=== PATIENT | male | born 1950 | race Caucasian/White ===

== ENCOUNTER 2023-02-23 12:28 | Outpatient (OUT) | payer MEDICARE, SELFPAY ==
--- NOTE | 2023-02-23 12:29 | VEIN_ITS ---
Patient: GILMA BOWIE Exam Date: 02/23/2023 : 1950 Gender:M Ordering : DR OSIEL MOSES M.D. Admission #: [id number] Family : Order #: [id number] CLICK HERE TO VIEW EXAM RADIOLOGY REPORT PROCEDURE: [facility] - OFFICE VISIT INITIAL COMPARISON: None. PROGRESS NOTES: 72-year-old male who presents with a 10+ year history of lower extremity pain swelling and varicose veins. The patient presents with bilaterally symmetric pain rating the pain as a 2 on a scale of 1-10. The patient complains bilateral heaviness itching and achiness. The patient's symptoms are exacerbated by prolonged sitting and standing and are partially relieved by rest, leg elevation, exercise, the patient does exercise daily and support stockings. The patient denies any signs and symptoms to suggest arterial ischemia. The patient describes a family history significant for heart disease, psoriasis, lymphoma, skin cancer and diabetes in his siblings. The patient has 12 siblings. The patient does not use alcohol. The patient has never smoked. No illicit drug use. Current medical history is significant for well controlled type 2 diabetes. 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 No history of deep venous thrombus or pulmonary embolus. See separate history and physical for medication list. No prior treatment for varicose or spider veins. Nursing notes were reviewed. After history and physical exam I discussed at length the pathophysiology of venous hypertension and possible treatments, therapies and strategies available. We discussed at length the importance of elevating the lower extremities above the level of the heart, increased physical activity and compression stocking use. We discussed conservative treatment with bilateral thigh-high compression stockings. We discussed use of compression stockings long-term to reduce disease recurrence. We discussed intravenous laser ablation, micro foam chemical ablation and injection sclerotherapy at length. Risks benefits and alternatives were discussed with the patient and his sister. Ultrasound venous reflux study performed the same day was discussed at length with the patient. The report demonstrates severe bilateral great saphenous vein venous insufficiency with saphenous femoral junction reflux and dilatation. Mild left small saphenous vein venous insufficiency. Extensive incompetent varicosities, incompetent perforating veins and moderate to severe bilateral deep vein reflux. PHYSICAL EXAM: The right leg demonstrates extensive varicosities, moderate reticular and spider veins. No active ulceration, hemosiderin staining or edema. The left leg demonstrates extensive varicosities, moderate reticular and spider veins. No active ulceration, hemosiderin staining or edema. Both thighs, legs and feet were symmetrically warm to the touch. Good posterior tibial and dorsalis pedis pulses were present bilaterally. VEIN/[facility] IMPRESSION: 1. Severe bilateral great saphenous vein venous insufficiency with dilatation 2. Severe bilateral lower extremity varicose veins 3. Incompetent dilated bilateral perforating veins 4. No definite flow significant arterial disease 5. CEAP: C2, Ep, As, Pr PLAN: 1. Endovenous laser ablation right great saphenous vein followed by left great saphenous vein followed by incompetent perforating veins 2. Micro foam chemical ablation bilateral incompetent varicose veins 3. Long-term use of bilateral knee or thigh-high 20-30 mm compression stockings 4. Continued patient and physical activity for symptomatic relief Nurse notes, history and physical were reviewed and confirmed, see attached forms. The nurse was present throughout the physical exam and consultation Dictated by: Osiel Moses MD on 02/23/2023 at 14:20 Approved by: Osiel Moses MD on 02/23/2023 at 14:47
--- NOTE | 2023-02-23 12:29 | VEIN_ITS ---
Patient: GILMA BOWIE Exam Date: 02/23/2023 : 1950 Gender:M Ordering : DR OSIEL MOSES M.D. Admission #: [id number] Family : Order #: [id number] CLICK HERE TO VIEW EXAM RADIOLOGY REPORT PROCEDURE: VC EXT VENOUS REFLUX DIOGENES LMTD COMPARISON: None. INDICATIONS: I83.813 Pain due to varicose veins of bilateral leg veins TECHNIQUE: Duplex imaging of the lower extremity to assess the deep and superficial venous system for the presence of deep or superficial venous incompetence and to document the location and severity of disease. The study includes evaluation of the great saphenous vein (GSV), anterior accessory saphenous vein (AASV) and small saphenous vein (SSV). Patient scanned in reverse Trendelenburg and standing. FINDINGS: RIGHT LOWER EXTREMITY: Saphenofemoral Junction Reflux: Yes 10.0mm 3.8 sec GSV: Diam (mm) Reflux/ Time (sec) Proximal Thigh 12.3 Yes 3.3 Mid Thigh 12.5 Yes 1.9 Distal Thigh 9.4 Yes 3.9 Prox Calf 6.6 Yes 3.6 Mid Calf 1.6 Yes 2.3 Saphenopopliteal Junction Reflux: 2.8mm Yes 0.2 SSV: Proximal Calf 3.6 Yes 0.4 Mid Calf 3.6 Yes 0.2 AASV: Not present Thrombi: No acute or chronic thrombus. Compressibility: Normal. Flow: Severe deep venous reflux. Preforator: Dist medial lower leg 4.9 mm with 1.2s reflux. Mid medial lower leg 4.4 mm, 2.2s reflux. Mid calf gastroc 3.7 mm, 2.9s reflux. Tech Note: Incompetent varicose vein proximal medial thigh off GSV 7.3 mm with 3.6s reflux. Mid medial thigh varicosity 13.3 mm, 3.5s reflux. Varicose vein proximal medial lower leg 7.9 mm with 3.5s reflux. LEFT LOWER EXTREMITY: Saphenofemoral Junction Reflux: Yes 11.9 mm 1.2 sec GSV: Diam (mm) Reflux/Time (sec) Proximal Thigh 12.9 Yes 1.4 Mid Thigh 7.0 Yes 3.8 Distal Thigh 4.0 Yes 0.8 Prox Calf 5.1 Yes 3.3 Mid Calf 5.3 Yes 2.0 Saphenopopliteal Junction Relux: 3.6 mm Yes 1.0 SSV: Proximal Calf 4.8 Yes 0.3 Mid Calf 3.7 Yes 1.0 AASV: Not present Thrombi: No acute or chronic thrombus. Compressibility: Normal. Flow: Moderate deep venous reflux. Maintenance Analyst: Dist medial lower leg 3.8 mm, 1.6s reflux. Mid medial lower leg 6.2 mm, 1.6s reflux. Tech Note: Incompetent varicose vein proximal medial lower leg 5.0 mm with 3.1s reflux. Medial knee varicose vein measures 5.9 mm with 3.5s reflux. Varicosity mid medial thigh measures 9.0 mm with 1.1s reflux. CONCLUSION: 1. Severe bilateral great saphenous vein venous insufficiency with saphenofemoral junction reflux and associated dilatation 2. Mild left small saphenous vein venous insufficiency without dilatation 3. Bilateral incompetent varicose veins 4. Bilateral incompetent perforating veins 5. Severe right and moderate left deep vein reflux Dictated by: Osiel Moses MD on 02/23/2023 at 13:58 Approved by: Osiel Moses MD on 02/23/2023 at 14:01
== END 2023-02-23 12:29 | disposition home or self-care (01) ==
LOC: VC 12:28
PROVIDERS: PCP Radiology Diagnostic Radiology; Visit Provider Radiology Diagnostic Radiology
DX: I83.813 Varicose veins of bilateral lower extremities with pain (principal)
CPT/HCPCS: 93970; G0463

== ENCOUNTER 2023-03-25 08:25 | Outpatient (OUT) | payer MEDICARE, SELFPAY ==
--- NOTE | 2023-03-25 08:36 | VEIN_ITS ---
The [address] [address] Patient Name: GILMA BOWIE MRN: [id number] date: 1950 Sex: M Assigned Patient Location: Current Patient Location: Accession/Order Number: [id number] Exam Date: 03/25/2023 08:36 Report Date: 03/25/2023 11:16 At the request of: ABHIJIT SCHMITT Procedure: VC Endovenous Ablation 1VeinRT EXAMINATION: VC Endovenous Ablation 1Vein right great saphenous vein HISTORY: I83.813 Pain due to varicose veins of bilateral legs COMPARISON: No relevant comparison available. TECHNIQUE: The risks and benefits of the procedure had been previously discussed, and were rediscussed at length. Informed written consent was obtained. Lidia Cardenas and Andria assisted. Time out procedure was performed. The right lower extremity was prepared and draped in the usual sterile fashion to allow knee flexion in the sterile field. Duplex ultrasound probe was draped in a sterile cover, sterile transmission gel was used. Venous mapping was performed with the areas of dilation and large tributaries marked. The total length was 46 cm from the entry upper calf to 3 cm below the saphenofemoral junction. I believe the entry site was tortuous and not amenable to intravenous laser ablation. The diameter of the greater saphenous vein ranged from 5-13 mm. A 30 gauge needle and 1% buffered lidocaine was used to anesthetize the entry site. A 4 mm incision was made with a scalpel and the saphenous vein was entered percutaneously under direct ultrasound guidance with a micropuncture set, a single stick was successful in gaining access. A micro-guide wire was inserted and the needle removed. A micro-set including a dilator was inserted over the microwire and the needle and dilator were removed. A 0.018 guide wire was inserted through the micro-set and threaded through the saphenous vein to the saphenofemoral junction. The dilator was removed and an introducer sheath was inserted over the wire until the end of the sheath entered the saphenofemoral junction. The dilator and wire were removed and the 600 micron fiber was introduced and placed and positioned so that it extended beyond the sheath and was 3 cm peripheral to the saphenofemoral femoral junction. Final position of the fiber was determined by ultrasound guidance and duplex imaging. Tumescent anesthetic was delivered by ultrasound guidance. 200 cc of fluid was delivered along the entire course of the saphenous vein. The solution consisted of 1000 cc of normal saline with 40 mL of 1% lidocaine and 20 mL of sodium bicarbonate. A final positioning check was made. The energy source was turned on by means of the foot pedal and the fiber and sheath were withdrawn. The total number of Joules delivered was 2145. The laser was active for 268seconds under continuous pulse, average laser use of 8 J. Laser start time 911 03/25/2023 . Laser stop time 916 03/25/2023 . A duplex ultrasound revealed compressibility and flow at the saphenofemoral junction immediately after the procedure. Hemostasis at the access site was achieved. The skin incision of the saphenous vein was closed with a 4 x 4. A compression stocking was applied. Postop instructions were given. A follow up appointment was recommended and scheduled. The patient tolerated the procedure well and was discharged in good condition . VEIN/VC Endovenous Ablation 1VeinRT IMPRESSION: Technically successful endovenous laser ablation of the right great saphenous vein Electronically authenticated by: ABHIJIT SCHMITT Date: 03/25/2023 11:16
[2023-03-25] MEDS: 0.9 % SODIUM CHLORIDE 500 ML, LIDOCAINE HCL 20 ML, SODIUM BICARBONATE 10 MEQ INJ (09:37)
[2023-03-25] MEDS: LIDOCAINE HCL 10 ML, SODIUM BICARBONATE 1 MEQ INJ (09:38)
== END 2023-03-25 08:26 | disposition home or self-care (01) ==
LOC: VC 08:27
PROVIDERS: PCP Radiology Diagnostic Radiology; Visit Provider Radiology Diagnostic Radiology
DX: I83.813 Varicose veins of bilateral lower extremities with pain (principal)
CPT/HCPCS: 36478

== ENCOUNTER 2023-03-30 09:54 | Outpatient (OUT) | payer MEDICARE, SELFPAY ==
--- NOTE | 2023-03-30 | VEIN_ITS ---
Patient: GILMA BOWIE Exam Date: 03/30/2023 : 1950 Gender:M Ordering : DR OSIEL MOSES M.D. Admission #: [id number] Family : Order #: [id number] CLICK HERE TO VIEW EXAM RADIOLOGY REPORT PROCEDURE: [facility] EST [facility] - OFFICE VISIT FOLLOW UP COMPARISON: None. PROGRESS NOTES: The patient reports no significant problems following intravenous laser ablation of the right great saphenous vein. The patient did not require oral analgesics. The patient has had some weakness in the left leg which is by his primary caregiver to be related to his knee. The patient has followed our recommendations to walk 20-30 minutes once or twice per day since the procedure. Physical exam demonstrates several small areas of mild bruising in the right medial thigh and lower leg related to tumescence injection, these areas range from 2-6 cm in diameter. Partially thrombosed right great saphenous vein can be palpated. No areas of erythema or warmth to suggest cellulitis or thrombophlebitis. No active ulceration Review of the ultrasound performed the same day demonstrates occlusive thrombus extending throughout the treated right great saphenous vein with heat induced thrombus 1.7 cm from the saphenofemoral junction. Incidentally observed is spontaneous thrombosis of a large associated branch saphenous tributary. The patient expressed a desire to proceed with treatment of incompetent left great saphenous vein. VEIN/[facility] Facility EST LMTD IMPRESSION: 1. Successful ablation of the right great saphenous vein 2. Persistent incompetent left great saphenous vein. PLAN: Intravenous laser ablation left great saphenous vein Nurse notes, history and physical were reviewed and confirmed, see attached forms. The nurse was present throughout the physical exam and consultation Dictated by: Osiel Moses MD on 03/30/2023 at 11:41 Approved by: Osiel Moses MD on 03/30/2023 at 11:42
--- NOTE | 2023-03-30 | VEIN_ITS ---
Patient: GILMA BOWIE Exam Date: 03/30/2023 : 1950 Gender:M Ordering : DR OSIEL MOSES M.D. Admission #: [id number] Family : Order #: [id number] CLICK HERE TO VIEW EXAM RADIOLOGY REPORT PROCEDURE: VC EXT VENOUS RT LMTD COMPARISON: None. INDICATIONS: Phlebitis of superficial veins of rt lower extremity I80.01 TECHNIQUE: Lower extremity mitchell scale and Duplex Doppler evaluation of the deep venous system from the inguinal ligament through the calf veins. FINDINGS: REGION: Right lower extremity. THROMBI: Negative for DVT. Heat induced thrombus in right GSV 1.7 cm from SFJ and extends to proximal calf. Associated varicosity off of mid medial thigh also thrombosed. COMPRESSIBILITY: Non-compressible segments corresponding to thrombus. FLOW: No flow corresponding to thrombus. OTHER: Patent varicosities in lower leg visualized. CONCLUSION: Post ablation occlusion of the ablated right great saphenous vein with heat induced thrombus 1.7 cm from the saphenofemoral junction Dictated by: Osiel Moses MD on 03/30/2023 at 10:24 Approved by: Osiel Moses MD on 03/30/2023 at 10:25
== END 2023-03-30 09:55 | disposition home or self-care (01) ==
LOC: VC 09:54
PROVIDERS: PCP Radiology Diagnostic Radiology; Visit Provider Radiology Diagnostic Radiology
DX: I80.01 Phlebitis and thrombophlebitis of superficial vessels of right lower extremity (principal)
CPT/HCPCS: 93971; G0463

== ENCOUNTER 2023-04-13 07:29 | Outpatient (OUT) | payer MEDICARE, SELFPAY ==
--- NOTE | 2023-04-13 | VEIN_ITS ---
The [address] [address] Patient Name: GILMA BOWIE MRN: [id number] date: 1950 Sex: M Assigned Patient Location: Current Patient Location: Accession/Order Number: [id number] Exam Date: 04/13/2023 07:30 Report Date: 04/13/2023 08:57 At the request of: ABHIJIT SCHMITT Procedure: VC Endovenous Ablation 1VeinLT EXAMINATION: VC Endovenous Ablation 1Vein left Great saphenous vein HISTORY: Pain due to varicose veins of bilateral legs I83.813 COMPARISON: No relevant comparison available. TECHNIQUE: The risks and benefits of the procedure had been previously discussed, and were rediscussed at length. Informed written consent was obtained. Lidia Cardenas and Rodrigue Scales assisted. Time out procedure was performed. The left lower extremity was prepared and draped in the usual sterile fashion to allow knee flexion in the sterile field. Duplex ultrasound probe was draped in a sterile cover, sterile transmission gel was used. Venous mapping was performed with the areas of dilation and large tributaries marked. The total length was 24 cm from the entry mid thigh to 3 cm below the saphenofemoral junction. The vein beneath this area was decompressed from a large varicose vein and not amenable to endovenous laser ablation. The diameter of the greater saphenous vein ranged from 4-8 mm. A 30 gauge needle and 1% buffered lidocaine was used to anesthetize the entry site. A 4 mm incision was made with a scalpel and the saphenous vein was entered percutaneously under direct ultrasound guidance with a micropuncture set, 2 needle sticks were successful in gaining access. A micro-guide wire was inserted and the needle removed. A micro-set including a dilator was inserted over the microwire and the needle and dilator were removed. A 0.018 guide wire was inserted through the micro-set and threaded through the saphenous vein to the saphenofemoral junction. The dilator was removed and an introducer sheath was inserted over the wire until the end of the sheath entered the saphenofemoral junction. The dilator and wire were removed and the 600 micron fiber was introduced and placed and positioned so that it extended beyond the sheath and was 3 cm peripheral to the saphenofemoral femoral junction. Final position of the fiber was determined by ultrasound guidance and duplex imaging. Tumescent anesthetic was delivered by ultrasound guidance. 175 cc of fluid was delivered along the entire course of the saphenous vein. The solution consisted of 1000 cc of normal saline with 40 mL of 1% lidocaine and 20 mL of sodium bicarbonate. A final positioning check was made. The energy source was turned on by means of the foot pedal and the fiber and sheath were withdrawn. The total number of Joules delivered was 1122. The laser was active for 140 seconds under continuous pulse, average laser use of 8 J. Laser start time 8:31 AM 04/13/2023 . Laser stop time 8:34 AM 04/13/2023 . A duplex ultrasound revealed compressibility and flow at the saphenofemoral junction immediately after the procedure. Hemostasis at the access site was achieved. The skin incision of the saphenous vein was closed with a 4 x 4. A compression stocking was applied. Postop instructions were given. A follow up appointment was recommended and scheduled. The patient tolerated the procedure well and was discharged in good condition . VEIN/VC Endovenous Ablation 1VeinLT IMPRESSION: Technically successful endovenous laser ablation of the left great saphenous vein Electronically authenticated by: ABHIJIT SCHMITT Date: 04/13/2023 08:57
[2023-04-13] MEDS: 0.9 % SODIUM CHLORIDE 500 ML, LIDOCAINE HCL 20 ML, SODIUM BICARBONATE 10 MEQ INJ (07:44)
== END 2023-04-13 07:30 | disposition home or self-care (01) ==
LOC: VC 07:29
PROVIDERS: PCP Radiology Diagnostic Radiology; Visit Provider Radiology Diagnostic Radiology
DX: I83.813 Varicose veins of bilateral lower extremities with pain (principal)
CPT/HCPCS: 36478

== ENCOUNTER 2023-04-20 09:51 | Outpatient (OUT) | payer MEDICARE, SELFPAY ==
--- NOTE | 2023-04-20 09:52 | VEIN_ITS ---
Patient: GILMA BOWIE Exam Date: 04/20/2023 : 1950 Gender:M Ordering : DR ABHIJIT SCHMITT M.D. Admission #: [id number] Family : Order #: [id number] CLICK HERE TO VIEW EXAM RADIOLOGY REPORT PROCEDURE: VC EXT VENOUS LT LIMITED COMPARISON: None. INDICATIONS: Phlebitis of superficial veins of lt lower extremity I80.02 TECHNIQUE: Lower extremity mitchell scale and Duplex Doppler evaluation of the deep venous system from the inguinal ligament through the calf veins. FINDINGS: REGION: Left lower extremity. THROMBI: Negative for DVT. Thrombus in left GSV 1.7 cm from SFJ and extends to distal thigh. COMPRESSIBILITY: Non-compressible segments. FLOW: Areas of no flow. OTHER: Patent varicose vein off of distal thigh GSV measures 6.2 mm. CONCLUSION: 1. Successful post ablation occlusion of left great saphenous vein. 2. Incomplete adhesion of the distal segment of thrombus to the wall of the great saphenous vein. Patient is currently on aspirin daily. Dictated by: Sae Pierson M.D. on 04/20/2023 at 10:21 Approved by: Sae Pierson M.D. on 04/20/2023 at 10:43
--- NOTE | 2023-04-20 10:04 | VEIN_ITS ---
Patient: GILMA BOWIE Exam Date: 04/20/2023 : 1950 Gender:M Ordering : DR ABHIJIT SCHMITT M.D. Admission #: [id number] Family : Order #: [id number] CLICK HERE TO VIEW EXAM RADIOLOGY REPORT PROCEDURE: [facility] - OFFICE VISIT FOLLOW UP [facility] PROGRESS NOTES: The patient reports improvement in leg symptoms. There has been interval reduction in varicosities. The patient has followed our recommendations to walk 20-30 minutes once or twice per day since the procedure. Physical exam demonstrates decrease in varicosities of the leg. Persistent prominent varicosities are identified along the legs bilaterally. Review of the ultrasound performed the same day demonstrates occlusive thrombus extending throughout the treated vein(s), see separate report, consistent with a successful ablation. No thrombus extending into or beyond the saphenofemoral junction, but the short segment of thrombus is incompletely adhered to the wall of the proximal great saphenous vein. The patient expressed a desire to proceed with treatment of remaining incompetent varicosities. The patient was informed that treatment was a process and would require several procedures/sessions. VEIN/[facility] EST LMTD IMPRESSION: 1. Successful ablation of the left great saphenous vein(s). 2. Persistent dilated incompetent veins and bilateral lower extremity symptoms. PLAN: 1. Patient is currently taking 1 aspirin per day. No additional blood thinner will be added at this time. Proximal aspect of left great saphenous vein will be re-evaluated at time of next follow-up ultrasound for reassessment of thrombus. 2. Endovenous laser ablation of bilateral cd reactor operator head veins. Nurse notes, history and physical were reviewed and confirmed, see attached forms. The nurse was present throughout the physical exam and consultation Dictated by: Sae Pierson M.D. on 04/20/2023 at 10:43 Approved by: Sae Pierson M.D. on 04/20/2023 at 10:47
== END 2023-04-20 09:52 | disposition home or self-care (01) ==
LOC: VC 09:51
PROVIDERS: PCP Radiology Diagnostic Radiology; Visit Provider Radiology Diagnostic Radiology
DX: I80.02 Phlebitis and thrombophlebitis of superficial vessels of left lower extremity (principal)
CPT/HCPCS: 93971; G0463

== ENCOUNTER 2023-05-16 09:58 | Outpatient (OUT) | payer MEDICARE, SELFPAY ==
--- NOTE | 2023-05-16 10:03 | VEIN_ITS ---
[address] [address] Patient Name: GILMA BOWIE MRN: [id number] date: 1950 Sex: M Assigned Patient Location: Current Patient Location: Accession/Order Number: [id number] Exam Date: 05/16/2023 10:05 Report Date: 05/16/2023 12:55 At the request of: ABHIJIT SCHMITT Procedure: VC Endovenous Perf Ablation RT EXAMINATION: VC Endovenous Perf Ablation RT COMPARISON: INDICATIONS: Pain due to varicose veins of bilateral legs I83.813 OPERATIVE REPORT: Diagnosis: Superficial venous reflux, incompetent perforating veins Procedure: Endovenous laser ablation of the right contact finger assembler(s) Procedure: The patient was positioned supine on the table and the leg was prepped and draped to allow for visualization during venous access. A sterile cover was draped over a 16 mhz ultrasound probe. Venous mapping was performed prior to the procedure noting location and size of vessel(s). Manager Digital vein 1: Right distal medial lower leg. The diameter of the vein ranged from 5 mm's below the muscular fascia to 5 mm's at the entry point. Using a 30 gauge needle the entry site was anesthetized with 1 cc of 1% buffered lidocaine. Access was gained percutaneously, with a 21-gauge needle, into the contact finger assembler vein under ultrasound guidance. The needle was advanced into the desired position and the pre-measured 400-micron fiber was then inserted into the needle and locked in place. The position of the fiber was imaged with ultrasound guidance. The fiber tip was visualized to be 15 mm from the deep vessel. An anesthetic solution of 5 cc 1% buffered lidocaine was delivered along the course of the vein under ultrasound guidance using a syringe. A final positioning check of the laser fiber tip was performed. The laser was activated by means of a foot-pedal and the fiber and needle were withdrawn together in accordance to the desired joules per treatment area/spot weld. 3 areas/spot welds were performed, and the total number of joules delivered was 177. The total time of energy delivery was 22 seconds. A duplex ultrasound revealed compressibility and flow of the deep system immediately after the procedure. Hemostasis of the access site was achieved and dressed. Manager Digital vein 2: Right mid medial lower leg. The diameter of the vein ranged from 4 mm's below the muscular fascia to 3.5 mm's at the entry point. Using a 30 gauge needle the entry site was anesthetized with 1 cc of 1% buffered lidocaine. Access was gained percutaneously, with a 21-gauge needle, into the contact finger assembler vein under ultrasound guidance. The needle was advanced into the desired position and the pre-measured 400-micron fiber was then inserted into the needle and locked in place. The position of the fiber was imaged with ultrasound guidance. The fiber tip was visualized to be 15 mm from the deep vessel. An anesthetic solution of 5cc 1% buffered lidocaine was delivered along the course of the vein under ultrasound guidance using a syringe. A final positioning check of the laser fiber tip was performed. The laser was activated by means of a foot-pedal and the fiber and needle were withdrawn together in accordance to the desired joules per treatment area/spot weld. 1 areas/spot welds were performed, and the total number of joules delivered was 46. The total time of energy delivery was 6 seconds. A duplex ultrasound revealed compressibility and flow of the deep system immediately after the procedure. Hemostasis of the access site was achieved and dressed. A 20-30 mm compression stocking over coban was placed on the treated leg. Post-Op instructions were given, and a follow-up appointment was made. CONCLUSION: 1. Technically successful endovenous laser ablation of 2 incompetent right leg contact finger assembler veins Electronically authenticated by: ABHIJIT SCHMITT Date: 05/16/2023 12:55
[2023-05-16] MEDS: LIDOCAINE HCL 1% 200 MG/20 ML MDV INJ (10:18)
== END 2023-05-16 09:59 | disposition home or self-care (01) ==
LOC: VC 09:58
PROVIDERS: PCP Radiology Diagnostic Radiology; Visit Provider Radiology Diagnostic Radiology
DX: I83.813 Varicose veins of bilateral lower extremities with pain (principal)
CPT/HCPCS: 36478

== ENCOUNTER 2023-06-09 13:18 | Outpatient (OUT) | payer MEDICARE, SELFPAY ==
--- NOTE | 2023-06-09 13:19 | VEIN_ITS ---
Patient Name: GILMA BOWIE MR#: [id number] : 1950 Exam Date: 06/09/2023 Ordering Doctor: DR ABHIJIT SCHMITT M.D. RADIOLOGY REPORT PROCEDURE: [facility] EST LMTD VEIN CENTER - OFFICE VISIT FOLLOW UP [facility] PROGRESS NOTES: The patient reports improvement in leg symptoms. There has been interval reduction in varicosities. The patient has followed our recommendations to walk 20-30 minutes once or twice per day since the procedure. Physical exam demonstrates decrease in varicosities of the leg. Persistent superficial varicosities are identified along the legs bilaterally. Review of the ultrasound performed the same day demonstrates occlusive thrombus extending throughout the treated vein(s), see separate report, consistent with a successful ablation. No thrombus extending into or beyond the saphenofemoral junction. The patient expressed a desire to proceed with treatment of bilateral incompetent branch saphenous varicosities. The patient was informed that treatment was a process and would require several procedures/sessions. [facility] IM[facility]: 1. Successful ablation of the incompetent right leg silk folder veins . 2. 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 PLAN: 1. Endovenous laser ablation of bilateral lower extremity branch saphenous varicosities. Nurse notes, history and physical were reviewed and confirmed, see attached forms. The nurse was present throughout the physical exam and consultation Dictated by: Sae Pierson M.D. on 06/09/2023 at 15:26 Approved by: Sae Pierson M.D. on 06/09/2023 at 15:28
--- NOTE | 2023-06-09 13:19 | VEIN_ITS ---
Patient Name: GILMA BOWIE MR#: [id number] : 1950 Exam Date: 06/09/2023 Ordering Doctor: DR ABHIJIT SCHMITT M.D. RADIOLOGY REPORT PROCEDURE: VC EXT VENOUS RT LMTD COMPARISON: VC EXT VENOUS RT LMTD, 03/30/2023. INDICATIONS: I80.01 Phlebitis of superficial veins of rt lower extremity TECHNIQUE: Lower extremity mitchell scale and Duplex Doppler evaluation of the deep venous system from the inguinal ligament through the calf veins. FINDINGS: REGION: Right lower extremity. THROMBI: Negative for DVT. Heat induced thrombus visualized at dist/med calf and prox/med calf. COMPRESSIBILITY: Non-compressible segments corresponding to thrombus FLOW: Areas of no flow. OTHER: CONCLUSION: 1. Successful post ablation occlusion of treated right leg building operator veins. Dictated by: Sae Pierson M.D. on 06/09/2023 at 15:26 Approved by: Sae Pierson M.D. on 06/09/2023 at 15:26
== END 2023-06-09 13:19 | disposition home or self-care (01) ==
LOC: VC 13:18
PROVIDERS: PCP Radiology Diagnostic Radiology; Visit Provider Radiology Diagnostic Radiology
DX: I80.01 Phlebitis and thrombophlebitis of superficial vessels of right lower extremity (principal)
CPT/HCPCS: 93971; G0463

== ENCOUNTER 2023-06-10 12:26 | Outpatient (OUT) | payer MEDICARE, SELFPAY ==
--- NOTE | 2023-06-10 12:27 | VEIN_ITS ---
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 A sterile cover was draped over a 16 mhz ultrasound probe. Venous mapping was performed prior to the procedure noting location and size of vessel(s). Cardio Clinician vein 1: Medial proximal lower left leg. The diameter of the vein ranged from 5.0 mm's below the muscular fascia to 5.0 mm's at the entry point. Using a 30 gauge needle the entry site was anesthetized with 1 cc of 1% buffered lidocaine. Access was gained percutaneously, with a 21-gauge needle, into the machine tank operator vein under ultrasound guidance. The needle was advanced into the desired position and the pre-measured 400-micron fiber was then inserted into the needle and locked in place. The position of the fiber was imaged with ultrasound guidance. The fiber tip was visualized to be 10 mm from the deep vessel. An anesthetic solution of 6 cc 1% buffered lidocaine was delivered along the course of the vein under ultrasound guidance using a syringe. A final positioning check of the laser fiber tip was performed. The laser was activated by means of a foot-pedal and the fiber and needle were withdrawn together in accordance to the desired joules per treatment area/spot weld. 3 areas/spot welds were performed, and the total number of joules delivered was 197. The total time of energy delivery was 16 seconds. A duplex ultrasound revealed compressibility and flow of the deep system immediately after the procedure. Hemostasis of the access site was achieved and dressed. A 20-30 mm compression stocking over coban was placed on the treated leg. Post-Op instructions were given, and a follow-up appointment was made. Cardio Clinician vein 2: Medial distal lower left leg. The diameter of the vein ranged from 3.8 mm's below the muscular fascia to 3.8 mm's at the entry point. Using a 30 gauge needle the entry site was anesthetized with 1 cc of 1% buffered lidocaine. Access was gained percutaneously, with a 21-gauge needle, into the machine tank operator vein under ultrasound guidance. The needle was advanced into the desired position and the pre-measured 400-micron fiber was then inserted into the needle and locked in place. The position of the fiber was imaged with ultrasound guidance. The fiber tip was visualized to be 10 mm from the deep vessel. An anesthetic solution of 5 cc 1% buffered lidocaine was delivered along the course of the vein under ultrasound guidance using a syringe. A final positioning check of the laser fiber tip was performed. The laser was activated by means of a foot-pedal and the fiber and needle were withdrawn together in accordance to the desired joules per treatment area/spot weld. 3 areas/spot welds were performed, and the total number of joules delivered was 201. The total time of energy delivery was 25 seconds. A duplex ultrasound revealed compressibility and flow of the deep system immediately after the procedure. Hemostasis of the access site was achieved and dressed. A 20-30 mm compression stocking over coban was placed on the treated leg. Post-Op instructions were given, and a follow-up appointment was made. CONCLUSION: 1. Technically successful endovenous laser ablation of left leg machine tank operator veins Electronically authenticated by: GRECIA URENA Date: 06/10/2023 13:38
[2023-06-10] MEDS: LIDOCAINE HCL 20 ML, SODIUM BICARBONATE 2 MEQ INJ (12:54)
== END 2023-06-10 12:27 | disposition home or self-care (01) ==
LOC: VC 12:26
PROVIDERS: PCP Radiology Diagnostic Radiology; Visit Provider Radiology Diagnostic Radiology
DX: I83.813 Varicose veins of bilateral lower extremities with pain (principal)
CPT/HCPCS: 36478

== ENCOUNTER 2023-06-27 12:47 | Outpatient (OUT) | payer MEDICARE, SELFPAY ==
--- NOTE | 2023-06-27 12:48 | VEIN_ITS ---
Patient Name: GILMA BOWIE MR#: [id number] : 1950 Exam Date: 06/27/2023 Ordering Doctor: DR ABHIJIT SCHMITT M.D. RADIOLOGY REPORT PROCEDURE: VC EXT VENOUS LT LIMITED COMPARISON: VC EXT VENOUS LT LIMITED, 04/20/2023. INDICATIONS: I80.02 Phlebitis of superficial veins of lt lower extremity TECHNIQUE: Lower extremity mitchell scale and Duplex Doppler evaluation of the deep venous system from the inguinal ligament through the calf veins. FINDINGS: REGION: Left lower extremity. THROMBI: Negative for DVT. Heat induced thrombus visualized at mid/med calf and prox/med calf. COMPRESSIBILITY: Non-compressible segments corresponding to thrombus FLOW: Areas of no flow corresponding to thrombus OTHER: CONCLUSION: 1. 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 Dictated by: Sae Pierson M.D. on 06/27/2023 at 14:56 Approved by: Sae Pierson M.D. on 06/27/2023 at 14:57
--- NOTE | 2023-06-27 12:48 | VEIN_ITS ---
Patient Name: GILMA BOWIE MR#: [id number] : 1950 Exam Date: 06/27/2023 Ordering Doctor: DR ABHIJIT SCHMITT M.D. RADIOLOGY REPORT PROCEDURE: [facility] EST [facility] VEIN CENTER - OFFICE VISIT FOLLOW UP [facility] PROGRESS NOTES: The patient reports improvement in leg symptoms. There has been interval reduction in varicosities. The patient has followed our recommendations to walk 20-30 minutes once or twice per day since the procedure. Physical exam demonstrates decrease in varicosities of the leg. Persistent varicosities are identified along the legs bilaterally. Review of the ultrasound performed the same day demonstrates occlusive thrombus extending throughout the treated vein(s), see separate report, consistent with a successful ablation. No thrombus extending into or beyond the saphenofemoral junction. The patient expressed a desire to proceed with treatment of remaining incompetent branch saphenous varicosities. The patient was informed that treatment was a process and would require 2-3 procedures/sessions. [facility]: 1. 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 2. Persistent superficial varicose veins and lower extremity symptoms. PLAN: Microfoam chemical ablation of bilateral branch saphenous varicosities. Nurse notes, history and physical were reviewed and confirmed, see attached forms. The nurse was present throughout the physical exam and consultation Dictated by: Sae Pierson M.D. on 06/27/2023 at 14:54 Approved by: Sae Pierson M.D. on 06/27/2023 at 14:55
== END 2023-06-27 12:48 | disposition home or self-care (01) ==
LOC: VC 12:47
PROVIDERS: PCP Radiology Diagnostic Radiology; Visit Provider Radiology Diagnostic Radiology
DX: I80.02 Phlebitis and thrombophlebitis of superficial vessels of left lower extremity (principal)
CPT/HCPCS: 93971; G0463